=== PATIENT | female | born 1950 | race Caucasian/White ===

== ENCOUNTER → 2018-04-18 | Outpatient (CLI) | payer MEDICARE, MEDICAID ==
[~2018-04-18] MED LIST: INSU100C5 SQ-INSULIN; INSU100I32 SC; LEVO137T2 PO; LIDOCAINE 1%, 20ML ONE; LIDOCAINE 1%-EPI 1:100K, 20ML ONE; METO50TA82 PO; ROSU10TA PO; SODIUM BICARBONATE 4.0%, 5ML ONE; SPIR25TA5 PO; TORS20TA2 PO
== END | disposition home or self-care (01) ==
LOC: CFH 06:42
PROVIDERS: ATTEND Surgery
DX: C50.512 Malignant neoplasm of lower-outer quadrant of left female breast (principal); C50.812 Malignant neoplasm of overlapping sites of left female breast
CPT/HCPCS: 19285; 76942; 88305; J3490

== ENCOUNTER → 2018-04-22 | Outpatient (CLI) | payer MEDICARE, MEDICAID ==
[~2018-04-22] VITALS: Ht 167.6 cm; Wt 122.7 kg
[~2018-04-22] MED LIST changes: +BENA5TAB3 PO; +BRIM5DRO2 TP; +CA C1TAB67 PO; +DORZ10DR26 TP; -LIDOCAINE 1%, 20ML ONE; -LIDOCAINE 1%-EPI 1:100K, 20ML ONE; +POTASSIUM PO; -SODIUM BICARBONATE 4.0%, 5ML ONE; +TRAV5DRO TP
== END | disposition home or self-care (01) ==
LOC: STAR 09:59 → EDSTATUS 04-24 07:00
PROVIDERS: ATTEND Surgery
DX: Z01.812 Encounter for preprocedural laboratory examination (principal); C50.912 Malignant neoplasm of unspecified site of left female breast
CPT/HCPCS: 93005

== ENCOUNTER 2018-04-30 08:13 | Day surgery (SDC) | payer MEDICARE, MEDICAID ==
[~2018-04-30] VITALS: Ht 167.6 cm; Wt 123.7 kg
[~2018-04-30 08:13] MED LIST changes: -BENA5TAB3 PO; -BRIM5DRO2 TP; -CA C1TAB67 PO; -DORZ10DR26 TP; -POTASSIUM PO; -TRAV5DRO TP
[2018-04-30] MEDS ORDERED: SODIUM CHLORIDE 0.9% 1,000 ML IV SCH (08:57)
[2018-04-30 09:27] VITALS: BP 117/75
[2018-04-30] MEDS ORDERED: DORZ10DR26 TP (09:37)
[2018-04-30] MEDS ORDERED: TRAV5DRO TP (09:37)
[2018-04-30] MEDS ORDERED: CA C1TAB67 PO (09:37)
[2018-04-30] MEDS ORDERED: POTASSIUM PO (09:37)
[2018-04-30] MEDS ORDERED: BRIM5DRO2 TP (09:37)
[2018-04-30] MEDS ORDERED: BENA5TAB3 PO (09:37)
[2018-04-30] MEDS ORDERED: LIDOCAINE-MPF 2%, 2ML ONE (09:58)
[2018-04-30] MEDS ORDERED: CEFAZOLIN PMX 1GM/50ML 50 ML IV ONE (10:00)
[2018-04-30] MEDS ORDERED: MIDAZOLAM 1 MG/ML, 5ML ONE ×2 (10:07)
[2018-04-30] MEDS ORDERED: FLUMAZENIL 0.1 MG/1 ML, 5ML ONE (10:07)
[2018-04-30] MEDS ORDERED: FENTANYL PF 100 MCG/2ML ONE (10:07)
[2018-04-30] MEDS ORDERED: NALOXONE 1 MG/ML, 2ML ONE (10:08)
[2018-05-02] MEDS ORDERED: ONDA8TAB12 PO (11:34)
[2018-05-02] MEDS ORDERED: ERGO2500 PO (11:34)
== END 2018-04-30 13:05 | disposition home or self-care (01) ==
LOC: OUT 08:13
PROVIDERS: ATTEND Surgery
DX: Z45.2 Encounter for adjustment and management of vascular access device (principal); C50.912 Malignant neoplasm of unspecified site of left female breast; I11.0 Hypertensive heart disease with heart failure; I50.9 Heart failure, unspecified; E11.9 Type 2 diabetes mellitus without complications; E78.5 Hyperlipidemia, unspecified; E03.9 Hypothyroidism, unspecified; E66.9 Obesity, unspecified; E89.0 Postprocedural hypothyroidism; Z98.890 Other specified postprocedural states; Z86.73 Personal history of transient ischemic attack (TIA), and cerebral infarction without residual deficits; Z79.899 Other long term (current) drug therapy; Z79.4 Long term (current) use of insulin
CPT/HCPCS: 36561; 76937; 77001; 82962; 99156; 99157; C1788; J0690; J1642; J2250; J3010; J3490; J7030; J2310

== ENCOUNTER → 2018-06-24 | Outpatient (CLI) | payer MEDICARE, MEDICAID ==
[~2018-06-24] MED LIST changes: +BENA5TAB3 PO; +BRIM5DRO2 TP; +CA C1TAB67 PO; +DORZ10DR26 TP; +ERGO2500 PO; +ONDA8TAB12 PO; +POTASSIUM PO; +TRAV5DRO TP
== END | disposition home or self-care (01) ==
LOC: CFH 14:01
PROVIDERS: ATTEND Internal Medicine Hematology & Oncology
DX: N63.23 Unspecified lump in the left breast, lower outer quadrant (principal); C50.412 Malignant neoplasm of upper-outer quadrant of left female breast; C77.3 Secondary and unspecified malignant neoplasm of axilla and upper limb lymph nodes

== ENCOUNTER → 2018-08-22 | Outpatient (CLI) | payer MEDICARE, MEDICAID | END | disposition home or self-care (01) | LOC: RAD 16:06 | PROVIDERS: ATTEND Internal Medicine Hematology & Oncology | DX: R22.41 Localized swelling, mass and lump, right lower limb (principal) ==

== ENCOUNTER 2018-09-04 13:16 | Inpatient (IN) | payer MEDICARE, MEDICAID ==
[~2018-09-04] VITALS: Ht 167.6 cm; Wt 114.1 kg
[2018-09-04] MEDS ORDERED: SODIUM CHLORIDE FLUSH 10ML SYR IVF ONE (14:00)
[2018-09-04 16:15] LABS: BASOPHILS # (AUTO) 0.03 x10^3/uL (0-0.1); BASOPHILS % (AUTO) 1 % (0-1); EOSINOPHILS # (AUTO) 0.19 x10^3/uL (0-0.4); EOSINOPHILS % (AUTO) 4 % (1-7); LYMPHOCYTES # (AUTO) 1.55 x10^3/uL (1-3.4); LYMPHOCYTES % (AUTO) 31 % (22-44); MD NO; MEAN CORPUSCULAR HEMOGLOBIN 33.5 pg (27.0-34.8); MEAN CORPUSCULAR HGB CONC 33.7 g/dL (32.4-35.8); MEAN CORPUSCULAR VOLUME 99.6 fL (80-100); MEAN PLATELET VOLUME 6.1 fL (7.4-10.4); MONOCYTES # (AUTO) 0.59 x10^3/uL (0.2-0.8); MONOCYTES % (AUTO) 12 % (2-9); NEUTROPHILS # (AUTO) 2.62 x10^3/uL (1.8-6.8); NEUTROPHILS % (AUTO) 53 % (42-75); PLATELET COUNT 308 x10^3/uL (130-400); RED BLOOD COUNT 3.13 x10^6/uL (3.82-5.3); RED CELL DISTRIBUTION WIDTH 18.2 % (9.6-15.2)
[2018-09-04] MEDS ORDERED: ONDANSETRON 2MG/ML, 2ML ONE (16:20)
[2018-09-04] MEDS ORDERED: MORPHINE SULFATE 4 MG/ML, 1ML ONE (16:20)
[2018-09-04 16:22] LABS: INTERNATIONAL NORMALIZED RATIO 1.01 (0.93-1.1); PROTHROMBIN TIME 10.7 Seconds (9.6-11.5)
[2018-09-04 16:23] LABS: ALANINE AMINOTRANSFERASE 30 U/L (12-78); ALBUMIN 3.3 g/dL (3.4-5.0); ANION GAP 9 mmol/L (5-15); CALCIUM 8.7 mg/dL (8.5-10.1); CHLORIDE 105 mmol/L (98-107); CREATININE 0.94 mg/dL (0.55-1.02)
[2018-09-04 16:25] LABS: ALKALINE PHOSPHATASE 153 U/L (45-117); TOTAL PROTEIN 6.4 g/dL (6.4-8.2)
[2018-09-04] MEDS ORDERED: MORPHINE SULFATE 4 MG/ML, 1ML IVPush PRN (16:30)
[2018-09-04] MEDS ORDERED: ONDANSETRON 2MG/ML, 2ML IVPush ONE (16:30)
[2018-09-04] MEDS ORDERED: MUPI15CR9 TP (16:32)
[2018-09-04] MEDS ORDERED: DULO30CA2 PO (16:32)
[2018-09-04] MEDS ORDERED: KETO15CR2 TP (16:32)
[2018-09-04] MEDS ORDERED: HYDR-3240 PO (16:32)
[2018-09-04] MEDS ORDERED: LEVO125T5 PO (16:32)
[2018-09-04] MEDS ORDERED: MAGNESIUM PO (16:32)
[2018-09-04] MEDS ORDERED: SODIUM CHLORIDE FLUSH 10ML SYR IVF PRN (17:00)
[2018-09-04 18:04] VITALS: BP 102/65
[2018-09-04] MEDS ORDERED: DOCUSATE 100 MG CAPSULE PO PRN (20:30)
[2018-09-04] MEDS ORDERED: GABAPENTIN 300 MG CAPSULE PO PRN (20:30)
[2018-09-04] MEDS ORDERED: ACETAMINOPHEN 325 MG TABLET PO PRN (20:30)
[2018-09-04] MEDS ORDERED: TEMAZEPAM 15 MG CAPSULE PO PRN (20:30)
[2018-09-04] MEDS ORDERED: INSULIN ASPART 25 UNIT SQ-INSULIN SCH (21:00)
[2018-09-04] MEDS: METOPROLOL TARTRATE 50 MG TABLET PO SCH (21:00)
[2018-09-04] MEDS: DORZOLAMIDE OPHTH 2%, 10ML OP SCH (22:56)
[2018-09-04] MEDS: ATORVASTATIN 20 MG TABLET PO SCH (22:56)
[2018-09-04] MEDS: BRIMONIDINE TART. OPHTH 0.2%, 5ML OP SCH (22:56)
[2018-09-04] MEDS: ENOXAPARIN 40 MG/0.4 ML SQ SCH (22:57)
[2018-09-04] MEDS: INSULIN LISPRO 100 UNITS/ML, PEN SQ-INSULIN SCH (23:07)
[2018-09-05] MEDS: ONDANSETRON ODT 4 MG PO PRN ×2 (00:30→07:46)
[2018-09-05] MEDS: morphine SULFATE 10 MG/ML, 1ML IVPush PRN ×2 (00:47→07:36)
[2018-09-05 02:48] VITALS: BP 111/63
[2018-09-05] MEDS: HYDROcodone/APAP 5/325 TABLET PO PRN (04:34)
[2018-09-05] MEDS: INSULIN LISPRO 100 UNITS/ML, PEN SQ-INSULIN SCH ×2 (07:00→10:58)
[2018-09-05 07:04] VITALS: BP 115/72
[2018-09-05] MEDS ORDERED: LEVOTHYROXINE 125 MCG TABLET PO SCH (09:00)
[2018-09-05] MEDS ORDERED: TIMOLOL OPHTH 0.5%, 5ML OP SCH (09:00)
[2018-09-05] MEDS ORDERED: TRAVOPROST OPHTH 0.004%, 2.5ML EACHEYE SCH (09:00)
[2018-09-05] MEDS ORDERED: INSULIN DEGLUDEC 100 UNIT SC SCH (09:00)
[2018-09-05] MEDS: BRIMONIDINE TART. OPHTH 0.2%, 5ML OP SCH (09:00)
[2018-09-05] MEDS: DORZOLAMIDE OPHTH 2%, 10ML OP SCH ×2 (10:29→21:31)
[2018-09-05] MEDS: TORSEMIDE 20 MG TABLET PO SCH (10:37)
[2018-09-05] MEDS: DULOXETINE 30 MG CAPSULE.DR PO SCH (10:37)
[2018-09-05] MEDS: MAGNESIUM OXIDE 400 MG TABLET PO SCH (10:37)
[2018-09-05] MEDS: METOPROLOL TARTRATE 50 MG TABLET PO SCH ×2 (10:37→21:30)
[2018-09-05] MEDS: GABAPENTIN 100 MG CAPSULE PO SCH ×3 (10:38→21:30)
[2018-09-05 12:54] VITALS: BP 123/77
[2018-09-05 14:00] LABS: MICROSCOPIC AUTO
[2018-09-05 14:01] LABS: CULTURE INDICATED? YES
[2018-09-05] MEDS ORDERED: GADOBUTROL 10 MMOL/10 ML PFS ONE (15:04)
[2018-09-05] MEDS ORDERED: INSULIN LISPRO 100 UNITS/ML, PEN SQ-INSULIN SCH (16:00)
[2018-09-05] MEDS: POTASSIUM CHLORIDE 20 MEQ TAB.ER.PRT PO SCH (17:10)
[2018-09-05] MEDS: KETOCONAZOLE CRM 2%, 15GM TP SCH (17:10)
[2018-09-05] MEDS: MUPIROCIN OINT 2%, 22GM TP SCH (17:10)
[2018-09-05 18:52] VITALS: BP 111/70
[2018-09-05] MEDS: BRIMONIDINE OP SCH (21:00)
[2018-09-05] MEDS: TIMOLOL OP SCH (21:00)
[2018-09-05] MEDS: [UNRECOGNIZED DRUG - OTHER] OP SCH (21:00)
[2018-09-05] MEDS: INSULIN ASPART SQ-INSULIN SCH (21:00)
[2018-09-05] MEDS: INSULIN DEGLUDEC 100 UNIT SC SCH (21:28)
[2018-09-05] MEDS: ATORVASTATIN 20 MG TABLET PO SCH (21:30)
[2018-09-05] MEDS: ENOXAPARIN 40 MG/0.4 ML SQ SCH (21:31)
[2018-09-06 00:26] VITALS: BP 112/62
[2018-09-06 05:02] LABS: FREE T4 (FREE THYROXINE) 0.58 ng/dL (0.76-1.46); THYROID STIMULATING HORMONE 24.8 mIU/L (0.358-3.740)
[2018-09-06] MEDS ORDERED: LEVOTHYROXINE 125 MCG TABLET PO SCH (06:00)
[2018-09-06] MEDS: INSULIN ASPART SQ-INSULIN SCH ×4 (07:00→20:42)
[2018-09-06 07:15] VITALS: BP 104/57
[2018-09-06] MEDS: METOPROLOL TARTRATE 50 MG TABLET PO SCH ×3 (07:57→20:35)
[2018-09-06] MEDS: MAGNESIUM OXIDE 400 MG TABLET PO SCH (07:57)
[2018-09-06] MEDS: GABAPENTIN 100 MG CAPSULE PO SCH ×3 (07:57→20:35)
[2018-09-06] MEDS: POTASSIUM CHLORIDE 20 MEQ TAB.ER.PRT PO SCH ×2 (07:57→16:06)
[2018-09-06] MEDS: DULOXETINE 30 MG CAPSULE.DR PO SCH ×2 (07:58→09:00)
[2018-09-06] MEDS: TORSEMIDE 20 MG TABLET PO SCH (07:58)
[2018-09-06] MEDS: DORZOLAMIDE OPHTH 2%, 10ML OP SCH ×2 (08:06→20:37)
[2018-09-06] MEDS: [UNRECOGNIZED DRUG - OTHER] OP SCH ×2 (08:06→20:37)
[2018-09-06] MEDS: MUPIROCIN OINT 2%, 22GM TP SCH (08:06)
[2018-09-06] MEDS: TIMOLOL OP SCH ×2 (08:06→20:37)
[2018-09-06] MEDS: KETOCONAZOLE CRM 2%, 15GM TP SCH (08:06)
[2018-09-06] MEDS: BRIMONIDINE OP SCH ×2 (08:06→20:37)
[2018-09-06] MEDS ORDERED: TRAVOPROST OPHTH 0.004%, 2.5ML EACHEYE SCH (09:00)
[2018-09-06] MEDS ORDERED: INSULIN DEGLUDEC 100 UNIT SC SCH (09:00)
[2018-09-06] MEDS: HYDROcodone/APAP 5/325 TABLET PO PRN (11:42)
[2018-09-06 12:25] VITALS: BP 103/57
[2018-09-06 19:21] VITALS: BP 103/58
[2018-09-06] MEDS: ENOXAPARIN 40 MG/0.4 ML SQ SCH (20:35)
[2018-09-06] MEDS: ATORVASTATIN 20 MG TABLET PO SCH (20:35)
[2018-09-06] MEDS: INSULIN DEGLUDEC 100 UNIT SC SCH (20:43)
[2018-09-06] MEDS: morphine SULFATE 10 MG/ML, 1ML IVPush PRN (22:08)
[2018-09-07 00:21] VITALS: BP 109/71
[2018-09-07] MEDS: morphine SULFATE 10 MG/ML, 1ML IVPush PRN ×2 (01:52→13:44)
[2018-09-07] MEDS: LEVOTHYROXINE 137 MCG TABLET PO SCH (06:24)
[2018-09-07 07:10] VITALS: BP 117/65
[2018-09-07] MEDS: POTASSIUM CHLORIDE 20 MEQ TAB.ER.PRT PO SCH ×2 (08:06→16:08)
[2018-09-07] MEDS: TORSEMIDE 20 MG TABLET PO SCH (08:06)
[2018-09-07] MEDS: DULOXETINE 30 MG CAPSULE.DR PO SCH (08:07)
[2018-09-07] MEDS: INSULIN ASPART SQ-INSULIN SCH ×4 (08:07→21:00)
[2018-09-07] MEDS: MAGNESIUM OXIDE 400 MG TABLET PO SCH (08:07)
[2018-09-07] MEDS: METOPROLOL TARTRATE 50 MG TABLET PO SCH ×2 (08:07→21:06)
[2018-09-07] MEDS: GABAPENTIN 100 MG CAPSULE PO SCH ×4 (08:07→21:06)
[2018-09-07] MEDS: TIMOLOL OP SCH ×2 (08:08→21:00)
[2018-09-07] MEDS: KETOCONAZOLE CRM 2%, 15GM TP SCH (08:08)
[2018-09-07] MEDS: BRIMONIDINE OP SCH ×2 (08:08→21:00)
[2018-09-07] MEDS: DORZOLAMIDE OPHTH 2%, 10ML OP SCH ×3 (08:08→21:45)
[2018-09-07] MEDS: [UNRECOGNIZED DRUG - OTHER] OP SCH ×2 (08:08→21:00)
[2018-09-07] MEDS: MUPIROCIN OINT 2%, 22GM TP SCH (08:09)
[2018-09-07] MEDS ORDERED: DULO30CA2 PO (09:44)
[2018-09-07] MEDS ORDERED: LEVO137T2 PO (09:44)
[2018-09-07] MEDS ORDERED: GABA-826 PO (09:44)
[2018-09-07] MEDS ORDERED: MAGN400T50 PO (09:44)
[2018-09-07] MEDS: HYDROcodone/APAP 5/325 TABLET PO PRN (11:14)
[2018-09-07 13:32] LABS: ANION GAP 5 mmol/L (5-15); CALCIUM 8.4 mg/dL (8.5-10.1); CHLORIDE 101 mmol/L (98-107); CREATININE 0.97 mg/dL (0.55-1.02)
[2018-09-07 14:16] VITALS: BP 108/61
[2018-09-07 16:00] LABS: HEMOGLOBIN A1C 6.1 % (4.2-6.3)
[2018-09-07 20:10] VITALS: BP 116/70
[2018-09-07] MEDS: TRAVOPROST OPHTH 0.004%, 2.5ML EACHEYE SCH (21:00)
[2018-09-07] MEDS: INSULIN DEGLUDEC 100 UNIT SC SCH (21:00)
[2018-09-07] MEDS: ENOXAPARIN 40 MG/0.4 ML SQ SCH (21:05)
[2018-09-07] MEDS: ATORVASTATIN 20 MG TABLET PO SCH (21:05)
[2018-09-08 00:52] VITALS: BP 122/77
[2018-09-08] MEDS: morphine SULFATE 10 MG/ML, 1ML IVPush PRN (02:30)
[2018-09-08] MEDS: LEVOTHYROXINE 137 MCG TABLET PO SCH (05:27)
[2018-09-08] MEDS: GABAPENTIN 100 MG CAPSULE PO SCH ×4 (05:28→16:28)
[2018-09-08] MEDS: INSULIN ASPART SQ-INSULIN SCH ×4 (07:30→20:29)
[2018-09-08 07:57] VITALS: BP 115/71
[2018-09-08] MEDS: POTASSIUM CHLORIDE 20 MEQ TAB.ER.PRT PO SCH ×2 (08:20→16:28)
[2018-09-08] MEDS: HYDROcodone/APAP 5/325 TABLET PO PRN ×4 (08:20→20:27)
[2018-09-08] MEDS: TORSEMIDE 20 MG TABLET PO SCH (08:21)
[2018-09-08] MEDS: DULOXETINE 30 MG CAPSULE.DR PO SCH (08:21)
[2018-09-08] MEDS: MAGNESIUM OXIDE 400 MG TABLET PO SCH (08:21)
[2018-09-08] MEDS: METOPROLOL TARTRATE 50 MG TABLET PO SCH ×2 (08:21→20:26)
[2018-09-08] MEDS: KETOCONAZOLE CRM 2%, 15GM TP SCH (08:22)
[2018-09-08] MEDS: MUPIROCIN OINT 2%, 22GM TP SCH (08:22)
[2018-09-08] MEDS: DORZOLAMIDE OPHTH 2%, 10ML OP SCH ×2 (08:23→20:25)
[2018-09-08] MEDS: BRIMONIDINE OP SCH ×2 (08:23→20:13)
[2018-09-08] MEDS: TIMOLOL OP SCH ×2 (08:23→20:13)
[2018-09-08] MEDS: [UNRECOGNIZED DRUG - OTHER] OP SCH ×2 (08:23→20:13)
[2018-09-08] MEDS ORDERED: LORATADINE 10 MG TABLET PO ONE (09:00)
[2018-09-08 13:27] VITALS: BP 113/54
[2018-09-08 19:08] VITALS: BP 102/58
[2018-09-08] MEDS: TRAVOPROST OPHTH 0.004%, 2.5ML EACHEYE SCH (20:03)
[2018-09-08] MEDS: ENOXAPARIN 40 MG/0.4 ML SQ SCH (20:27)
[2018-09-08] MEDS: ATORVASTATIN 20 MG TABLET PO SCH (20:27)
[2018-09-08] MEDS: INSULIN DEGLUDEC 100 UNIT SC SCH (20:28)
[2018-09-08] MEDS ORDERED: GABAPENTIN 400 MG CAPSULE PO SCH (21:00)
[2018-09-09 00:35] VITALS: BP 114/67
[2018-09-09] MEDS: morphine SULFATE 10 MG/ML, 1ML IVPush PRN ×2 (00:39→07:34)
[2018-09-09] MEDS: HYDROcodone/APAP 5/325 TABLET PO PRN (05:16)
[2018-09-09] MEDS: LEVOTHYROXINE 137 MCG TABLET PO SCH (05:16)
[2018-09-09] MEDS: INSULIN ASPART SQ-INSULIN SCH ×2 (07:00→11:19)
[2018-09-09 07:38] VITALS: BP 117/71
[2018-09-09] MEDS ORDERED: HYDROcodone/APAP 5/325 TABLET PO PRN (09:00)
[2018-09-09] MEDS: TRAVOPROST OPHTH 0.004%, 2.5ML EACHEYE SCH ×2 (09:00→10:05)
[2018-09-09] MEDS: GABAPENTIN 100 MG CAPSULE PO SCH ×2 (10:03→12:13)
[2018-09-09] MEDS: POTASSIUM CHLORIDE 20 MEQ TAB.ER.PRT PO SCH (10:03)
[2018-09-09] MEDS: DULOXETINE 30 MG CAPSULE.DR PO SCH (10:03)
[2018-09-09] MEDS: TORSEMIDE 20 MG TABLET PO SCH (10:04)
[2018-09-09] MEDS: MAGNESIUM OXIDE 400 MG TABLET PO SCH (10:04)
[2018-09-09] MEDS: METOPROLOL TARTRATE 50 MG TABLET PO SCH (10:04)
[2018-09-09] MEDS: DORZOLAMIDE OPHTH 2%, 10ML OP SCH (10:05)
[2018-09-09] MEDS: BRIMONIDINE OP SCH (10:06)
[2018-09-09] MEDS: [UNRECOGNIZED DRUG - OTHER] OP SCH (10:06)
[2018-09-09] MEDS: TIMOLOL OP SCH (10:06)
[2018-09-09] MEDS: MUPIROCIN OINT 2%, 22GM TP SCH (10:07)
[2018-09-09] MEDS: KETOCONAZOLE CRM 2%, 15GM TP SCH (10:08)
[2018-09-09] MEDS ORDERED: GABA300C10 PO (10:40)
[2018-09-09] MEDS ORDERED: GABA-826 PO (10:40)
[2018-09-09] MEDS ORDERED: HYDR-3240 PO (10:40)
[2018-09-09 13:51] VITALS: BP 115/68
[2018-09-09] MEDS ORDERED: GABAPENTIN 300 MG CAPSULE PO SCH (21:00)
== END 2018-09-09 15:16 | DRG 74 ==
LOC: ED 15:55 → EDIP 16:46 → 3NW 17:33
PROVIDERS: ADMIT Hospitalist; ATTEND Hospitalist
DX: G62.0 Drug-induced polyneuropathy (principal); I50.30 Unspecified diastolic (congestive) heart failure; Z68.41 Body mass index [BMI] 40.0-44.9, adult; T45.1X5A Adverse effect of antineoplastic and immunosuppressive drugs, initial encounter; C50.912 Malignant neoplasm of unspecified site of left female breast; E66.01 Morbid (severe) obesity due to excess calories; E89.0 Postprocedural hypothyroidism; R29.6 Repeated falls; E10.649 Type 1 diabetes mellitus with hypoglycemia without coma; Z51.5 Encounter for palliative care; E78.5 Hyperlipidemia, unspecified; I11.0 Hypertensive heart disease with heart failure; Z82.49 Family history of ischemic heart disease and other diseases of the circulatory system; Z85.3 Personal history of malignant neoplasm of breast; Z86.73 Personal history of transient ischemic attack (TIA), and cerebral infarction without residual deficits; Z91.81 History of falling; Y92.89 Other specified places as the place of occurrence of the external cause; Z90.49 Acquired absence of other specified parts of digestive tract
CPT/HCPCS: 36415; 70553; 80048; 80053; 81001; 82962; 83036; 83735; 84439; 84443; 85025; 85610; 85730; 87086; 93970; 96374; 96375; 99285; A9585; G0378; J1650; J2405; Q0162; J1815; J2270

== ENCOUNTER 2018-10-24 09:05 | Outpatient (CLI) | payer MEDICARE, MEDICAID ==
[~2018-10-24 09:05] MED LIST changes: +DULO30CA2 PO; +GABA-826 PO; +GABA-827 PO; +GABA300C10 PO; +HYDR-3240 PO; +KETO15CR2 TP; +LEVO125T5 PO; +MAGN400T50 PO; +MAGNESIUM PO; +METH750T2 PO; +MORP30TA3 PO; +MUPI15CR9 TP; +OXYC5TAB3 PO; +POLY17PO5 PO; +PREG25CA PO
== END 2018-10-24 23:59 | disposition home or self-care (01) ==
LOC: ROC 09:05
PROVIDERS: ATTEND Radiology Radiation Oncology
DX: Z02.9 Encounter for administrative examinations, unspecified (principal)